=== PATIENT | female | born 1940 | race African-American/Black ===

== ENCOUNTER → 2016-11-24 | Outpatient (CLI) | payer BC ==
[~2016-11-24] MED LIST: METF500T4 PO; METO25TA9 PO; OMEP20CA9 PO
--- NOTE | 2016-11-24 13:28 | KCIC ---
PROCEDURE Left wrist, three views. HISTORY Patient fell early October 2016. Pain radial side, swelling. COMPARISON Left wrist, three views, March 18, 2016. FINDINGS There is an acute to subacute fracture of the radial styloid which is essentially nondisplaced. There may be early callus formation. Degenerative change of intercarpal and 1st CMC joints. There is demineralization. There is probably dorsal soft tissue swelling of the wrist. IMPRESSION Acute/subacute nondisplaced traumatic fracture of the radial styloid. Electronically signed by: Mathieu Bustillo MD (Nov 24, 2016 13:27:24)
== END | disposition home or self-care (01) ==
LOC: EDBD 12:32 → KCIC 12:32
PROVIDERS: ATTEND Family Medicine
DX: M25.532 Pain in left wrist (principal)
CPT/HCPCS: 73110

== ENCOUNTER → 2018-07-18 | Outpatient (CLI) | payer BC ==
[~2018-07-18] MED LIST changes: +METF500T16 PO; -METF500T4 PO; +METO-239 PO; -METO25TA9 PO
--- NOTE | 2018-07-18 16:25 | KCIC ---
EXAM: Lower extremity arterial Doppler sonogram with ankle-brachial indices (MIRNA). HISTORY: Edema. Pain. TECHNIQUE: Doppler sonographic evaluation of the lower extremities was performed and pressure readings were assessed. FINDINGS: Right brachial pressure: 143 mmHg Left brachial pressure: 132 mmHg Right ankle pressure (posterior tibial artery): 132 mmHg Right ankle pressure (dorsalis pedis artery): 138 mmHg Right ankle MIRNA: 0.97 Left ankle pressure (dorsalis pedis artery): 137 mmHg Left ankle pressure (posterior tibial artery): 135 mmHg Left ankle MIRNA: 0.96 IMPRESSION: Normal bilateral ankle-brachial indices. Electronically signed by: Maryann Monsalve MD (07/18/2018 4:21 PM) [place] [id number]
== END | disposition home or self-care (01) ==
LOC: KCIC US 13:11
PROVIDERS: ATTEND Family Medicine
DX: L03.116 Cellulitis of left lower limb (principal); I89.0 Lymphedema, not elsewhere classified; E11.9 Type 2 diabetes mellitus without complications; R60.0 Localized edema; Z79.84 Long term (current) use of oral hypoglycemic drugs
CPT/HCPCS: 93922